=== PATIENT | female | born 1960 | race Caucasian/White ===

== ENCOUNTER 2017-03-05 16:37 | Emergency (ER) | payer BC, OTHER ==
[2017-03-05 17:17] VITALS: BP 120/74
--- NOTE | 2017-03-05 17:54 | UC ---
Respiratory Complaint HPI - HPI Summary HPI Summary: The patient comes in today for: 1. Runny nose, sore throat, runny eyes, and coughing, fever: Onset: Yesterday. Palliative/Provocative: Coughing makes the throat pain worse. Quality: sore Region: Posterior pharynx. Severity: 3/10 Time: Constant. Associated symptoms: Fever: 101 yesterday. : He was seen yesterday at [facility]: diagnosed as having influenza A Rhinitis: Green Sinus pressure: Present. Cough: Dry. Chest pain: None Dyspnea: None. * - History of Current Complaint Chief Complaint: UCGeneralIllness Stated Complaint: FLU COMPLAINT Time Seen by Provider: 03/05/17 17:45 Hx Obtained From: Patient Hx Last Menstrual Period: age 50 yo - Allergies/Home Medications Allergies/Adverse Reactions: Allergies Allergy/AdvReac Type Severity Reaction Status Date / Time Erythromycin Allergy Severe respiratory Verified 03/05/17 17:05 Sulfa Antibiotics Allergy Severe panic Verified 03/05/17 17:05 attacks Home Medications: Home Medications Acetaminophen TAB* [Tylenol TAB*] 2 tab Q8HR PRN 03/05/17 [History Confirmed 02/16] PMH/Surg Hx/FS Hx/Imm Hx Previously Healthy: Yes Endocrine History Of: Denies: Diabetes, Thyroid Disease, Hyperthyroidism, Hypothyroidism, Dyslipidemia Cardiovascular History Of: Denies: Cardiac Disorders, Hypertension, Pacemaker/ICD, Myocardial Infarction , Congestive Heart Failure, Atrial Fibrillation, Deep Vein Thrombosis, Bleeding Disorders Respiratory History Of: Denies: COPD, Asthma, Bronchitis, Pneumonia, Pulmonary Embolism GI/ History Of: Reports: Gastroesophageal Reflux - No medications taken for it. Denies: Ulcer, Gastrointestinal Bleed, Gall Bladder Disease, Kidney Stones, Diverticulitis, Renal Disease, Urosepsis Neurological History Of: Denies: TIA, CVA, Dementia, Seizures, Migraine Psychological History Of: Reports: Anxiety - She is not on any medications for this. Denies: Depression, Bipolar Disorder, Schizophrenia, Post Traumatic Stress Disorder Cancer History Of: Denies: Lung Cancer, Colorectal Cancer, Breast Cancer, Prostate Cancer, Cervical Cancer Other History Of: Negative For: HIV, Hepatitis B, Hepatitis C, Anticoagulant Therapy - Surgical History Surgical History: Yes Surgery Procedure, Year, and Place: right fallopian tube removed. appendectomy. left shoulder arthroscopy. tonsillectomy. Bilat ear tube 2016. Nasal/sinus surgery 2015 - Family History Known Family History: Positive: Cardiac Disease, Hypertension - Social History Occupation: Employed Full-time Alcohol Use: None Substance Use Type: None Smoking Status (MU): Current Every Day Smoker Type: Cigarettes Amount Used/How Often: 1 ppd Household Exposure Type: Cigarettes - Immunization History Most Recent Influenza Vaccination: NONE Most Recent Tetanus Shot: UTD Most Recent Pneumonia Vaccination: NONE Review of Systems Constitutional: Negative Skin: Negative Eyes: Negative ENT: Sore Throat, Nasal Discharge Respiratory: Cough Cardiovascular: Negative Gastrointestinal: Negative Genitourinary: Negative All Other Systems Reviewed And Are Negative: Yes Physical Exam Triage Information Reviewed: Yes Appearance: Well-Appearing, No Pain Distress, Well-Nourished Vital Signs: Initial Vital Signs Temp 97.9 F 03/05/17 17:07 Pulse 71 03/05/17 17:07 Resp 18 03/05/17 17:07 BP 120/74 03/05/17 17:07 Pulse Ox 97 03/05/17 17:07 Vital Signs Reviewed: Yes Eyes: Positive: Conjunctiva Clear. Negative: Discharge ENT: Positive: Hearing grossly normal. Negative: Pharyngeal erythema, Nasal congestion, Nasal drainage, TMs normal, TM dull, TM red Dental: Negative: Gross Decay/Caries @, Dental Fracture @ Neck: Positive: Supple, Nontender, No Lymphadenopathy. Negative: Nuchal Rigidity Respiratory: Positive: Lungs clear, No respiratory distress, No accessory muscle use. Negative: Accessory muscle use, Crackles, Wheezing Cardiovascular: Positive: RRR, No Murmur Abdomen Description: Positive: Nontender, No Organomegaly, Soft. Negative: Distended, Guarding Musculoskeletal: Positive: Strength Intact, ROM Intact, No Edema Neurological: Positive: Alert, Muscle Tone Normal Psychological: Positive: Age Appropriate Behavior, Consolable Skin: Negative: rashes, breakdown UC Diagnostic Evaluation - Laboratory O2 Sat by Pulse Oximetry: 97 Diagnostic Studies Comment: Strep test: (-). Influenza test: (-) Respiratory Course/Dx - Course Course Of Treatment: Patient told of negative flu and strep tests and her treatment options were discussed. She would like Tamiflu prophylaxis and treatment for sinusitis. - Differential Dx/Diagnosis Provider Diagnoses: Influenza exposure. Sinusitis Discharge - Discharge Plan Condition: Stable Disposition: HOME Patient Education Materials: Sinusitis (ED) Referrals: Damaso Marie DO [Doctor of Osteopathy] - 1 Week (Please see your primary care provider or us in a week to see how well you are doing. If you get worse, please be seen sooner. )
== END 2017-03-05 18:43 | disposition home or self-care (01) ==
LOC: UCCORT 16:37
DX: J32.9 Chronic sinusitis, unspecified (principal); Z88.1 Allergy status to other antibiotic agents; Z88.2 Allergy status to sulfonamides; F17.210 Nicotine dependence, cigarettes, uncomplicated
CPT/HCPCS: 87502; 87651; 99212; G0463

== ENCOUNTER 2017-09-23 12:55 | Emergency (ER) | payer BC ==
[2017-09-23 13:49] VITALS: BP 125/65
--- NOTE | 2017-09-23 14:09 | UC ---
Respiratory Complaint HPI - HPI Summary HPI Summary: Cough for about three weeks. Intermittent subjective fever. NO significant production. No hemoptysis. Left chest pain with cough. She is a smoker without any known lung disease. - History of Current Complaint Chief Complaint: UCGeneralIllness Stated Complaint: FEVER,FRAGOSO,COUGH Time Seen by Provider: 09/23/17 13:57 Hx Obtained From: Patient Hx Last Menstrual Period: age 50 yo Onset/Duration: Gradual Onset, Lasting Weeks Timing: Constant Severity Initially: Moderate Severity Currently: Moderate Character: Cough: Nonproductive Aggravating Factors: Deep Breaths, Recumbent Position Alleviating Factors: Nothing Associated Signs And Symptoms: Positive: Fever, URI, Nasal Congestion. Negative : Dyspnea, Chills, Pleuritic Chest Pain, Wheezing, Hemoptysis, Dizziness, Calf Pain, Calf Swelling, Edema - Allergies/Home Medications Allergies/Adverse Reactions: Allergies Allergy/AdvReac Type Severity Reaction Status Date / Time Erythromycin Allergy Severe respiratory Verified 09/23/17 13:40 Sulfa Antibiotics Allergy Severe panic Verified 09/23/17 13:40 attacks Home Medications: Home Medications Atorvastatin* [Lipitor 10 MG*] 1 tab DAILY 09/23/17 [History Confirmed 09/23/17] Omeprazole CAP* [Prilosec CAP* 20 MG] 1 tab DAILY 09/23/17 [History Confirmed ] PMH/Surg Hx/FS Hx/Imm Hx Previously Healthy: No - smoker. Other History Of: Negative For: HIV, Hepatitis B, Hepatitis C, Anticoagulant Therapy - Surgical History Surgical History: Yes Surgery Procedure, Year, and Place: right fallopian tube removed. appendectomy. left shoulder arthroscopy. tonsillectomy. Bilat ear tube 2016. Nasal/sinus surgery 2015 - Family History Known Family History: Positive: Cardiac Disease, Hypertension - Social History Alcohol Use: None Substance Use Type: None Smoking Status (MU): Current Every Day Smoker Type: Cigarettes Amount Used/How Often: 1 ppd Household Exposure Type: Cigarettes - Immunization History Most Recent Influenza Vaccination: NONE Most Recent Tetanus Shot: UTD Most Recent Pneumonia Vaccination: NONE Review of Systems ENT: Sinus Congestion Respiratory: Cough All Other Systems Reviewed And Are Negative: Yes Physical Exam Triage Information Reviewed: Yes Appearance: Well-Appearing, No Pain Distress, Well-Nourished Vital Signs: Initial Vital Signs Temp 97.3 F 09/23/17 13:41 Pulse 82 09/23/17 13:41 Resp 16 09/23/17 13:41 BP 125/65 09/23/17 13:41 Pulse Ox 96 09/23/17 13:41 Vital Signs Reviewed: Yes Eyes: Positive: Conjunctiva Clear ENT: Positive: Pharynx normal, TMs normal. Negative: Pharyngeal erythema, Nasal congestion, Nasal drainage, Tonsillar swelling, Tonsillar exudate, Trismus , Muffled voice, Hoarse voice, Dental tenderness, Sinus tenderness Neck: Positive: Supple, Nontender, No Lymphadenopathy Respiratory: Positive: Lungs clear, Normal breath sounds, No respiratory distress, No accessory muscle use. Negative: Respiratory distress, Decreased breath sounds, Accessory muscle use, Crackles, Rhonchi, Stridor, Wheezing Cardiovascular: Positive: RRR, No Murmur, Pulses Normal Abdomen Description: Positive: Nontender, No Organomegaly. Negative: Distended , Guarding Musculoskeletal: Positive: Strength Intact, ROM Intact, No Edema Neurological: Positive: Alert, Muscle Tone Normal. Negative: Fatigued Skin: Negative: rashes UC Diagnostic Evaluation - Laboratory O2 Sat by Pulse Oximetry: 96 Respiratory Course/Dx - Course Course Of Treatment: No clinical signs of pneumonia. We will try aggressive treatment with z pack and prednisone given duration of symptoms and smoking status. - Differential Dx/Diagnosis Provider Diagnoses: acute bronchitis. Discharge - Discharge Plan Condition: Good Disposition: HOME Prescriptions: Azithromyxin MARY (NF) [Z-Mary (Zithromax) 250 mg tabs #6] 2 tab PO .TODAY, THEN 1 DAILY #6 tab Benzonatate [TESSALON 200 MG CAP] 200 mg PO TID #30 cap predniSONE TAB* [Deltasone TAB*] 20 mg PO DAILY #15 tab Patient Education Materials: Upper Respiratory Infection (ED) Referrals: Noris Shine MD [Primary Care Provider] - If Needed
== END 2017-09-23 14:15 | disposition home or self-care (01) ==
LOC: UCCORT 12:55
DX: J20.9 Acute bronchitis, unspecified (principal); Z88.3 Allergy status to other anti-infective agents; Z88.2 Allergy status to sulfonamides; F17.210 Nicotine dependence, cigarettes, uncomplicated
CPT/HCPCS: 99212; G0463

== ENCOUNTER 2018-07-31 15:13 | Emergency (ER) | payer BC ==
[2018-07-31 16:15] VITALS: BP 131/94
--- NOTE | 2018-07-31 17:03 | UC ---
Respiratory Complaint HPI - HPI Summary HPI Summary: worsening cough, congestion and wheeze has not been able to smoke for the past 2 days---no fevers---usually smokes 1-1 1/2 packs per day - History of Current Complaint Chief Complaint: UCRespiratory Stated Complaint: COUGH Time Seen by Provider: 07/31/18 16:50 Hx Obtained From: Patient Hx Last Menstrual Period: age 50 yo ?: No Onset/Duration: Gradual Onset, Lasting Days, Worse Since - past 2-3 days Timing: Constant Pain Intensity: 3 Pain Scale Used: 0-10 Numeric Character: Cough: Productive Aggravating Factors: Nothing Alleviating Factors: Nothing Associated Signs And Symptoms: Positive: Pleuritic Chest Pain, URI - Allergies/Home Medications Allergies/Adverse Reactions: Allergies Allergy/AdvReac Type Severity Reaction Status Date / Time MS Erythromycin Allergy Severe respiratory Verified 07/31/18 16:15 [Erythromycin] MS Sulfa Antibiotics Allergy Severe panic Verified 07/31/18 16:15 [Sulfa Antibiotics] attacks PMH/Surg Hx/FS Hx/Imm Hx Previously Healthy: No Endocrine History: Dyslipidemia GI/ History: Gastroesophageal Reflux Other History Of: Negative For: HIV, Hepatitis B, Hepatitis C, Anticoagulant Therapy - Surgical History Surgical History: Yes Surgery Procedure, Year, and Place: right fallopian tube removed. appendectomy. left shoulder arthroscopy. tonsillectomy. Bilat ear tube 2016. Nasal/sinus surgery 2015 - Family History Known Family History: Positive: Cardiac Disease, Hypertension - Social History Occupation: Employed Full-time Lives: With Family Alcohol Use: None Substance Use Type: None Smoking Status (MU): Current Every Day Smoker Type: Cigarettes Amount Used/How Often: 1 ppd Household Exposure Type: Cigarettes Cessation Counseling: Counseled 3+Min - 10 Min - Immunization History Most Recent Influenza Vaccination: NONE Most Recent Tetanus Shot: UTD Most Recent Pneumonia Vaccination: NONE Review of Systems Constitutional: Negative Skin: Negative Eyes: Negative ENT: Negative Respiratory: Cough - wheeze Cardiovascular: Negative Gastrointestinal: Negative Genitourinary: Negative Motor: Negative Neurovascular: Negative Musculoskeletal: Negative Neurological: Negative Psychological: Negative Is Patient Immunocompromised?: No All Other Systems Reviewed And Are Negative: Yes Physical Exam Triage Information Reviewed: Yes Appearance: Well-Appearing, No Pain Distress, Well-Nourished Vital Signs: Initial Vital Signs Temp 98.6 F 07/31/18 16:10 Pulse 73 07/31/18 16:10 Resp 18 07/31/18 16:10 BP 131/94 07/31/18 16:10 Pulse Ox 94 07/31/18 16:10 Vital Signs Reviewed: Yes Eye Exam: Normal Eyes: Positive: Conjunctiva Clear ENT Exam: Normal ENT: Positive: Normal ENT inspection, Hearing grossly normal, Pharynx normal, TMs normal. Negative: Nasal congestion, Trismus, Muffled voice, Hoarse voice Dental Exam: Normal Neck exam: Normal Neck: Positive: Supple, Nontender, No Lymphadenopathy Respiratory Exam: Other Respiratory: Positive: Chest non-tender, No respiratory distress, No accessory muscle use, Wheezing Cardiovascular Exam: Normal Cardiovascular: Positive: RRR, Pulses Normal, Brisk Capillary Refill Musculoskeletal Exam: Normal Musculoskeletal: Positive: Strength Intact, ROM Intact, No Edema Neurological Exam: Normal Neurological: Positive: Alert, Muscle Tone Normal Psychological Exam: Normal Skin Exam: Normal UC Diagnostic Evaluation - Laboratory O2 Sat by Pulse Oximetry: 94 Re-Evaluation - Re-Evaluation First Eval Change: Improved - significant increase aeration and no wheeze after neb-feels much better Respiratory Course/Dx - Course Course Of Treatment: nicotine cesasation information , encouragement and supprt- -albuterol MDI, follow with pcp - Differential Dx/Diagnosis Provider Diagnoses: nicotine dependant, acute bronchospasm Discharge - Sign-Out/Discharge Documenting (check all that apply): Patient Departure All imaging exams completed and their final reports reviewed: No Studies - Discharge Plan Condition: Stable Disposition: HOME Prescriptions: Albuterol HFA INHALER* [Ventolin HFA Inhaler*] 2 puff INH Q4H PRN #1 mdi PRN Reason: cough/wheeze Nicotine PATCH 21 MG/24 HR* 21 mg TRANSDERM DAILY #28 patch Nicotine PATCH 21 MG/24 HR* 21 mg TRANSDERM DAILY 28 Days #28 patch Patient Education Materials: How to Stop Smoking (ED), Secondhand Smoke Exposure in Children (ED), Bronchospasm (ED) Referrals: Noris Shine MD [Primary Care Provider] - If Needed - Billing Disposition and Condition Condition: STABLE Disposition: Home
[2018-07-31] MEDS ORDERED: Albuterol/Ipratropium NEB.SOL* Albuterol 2.5 MG/Ipratropium 0.5 MG 3 ML INH ONE (17:10)
== END 2018-07-31 18:02 | disposition home or self-care (01) ==
LOC: UCCORT 15:13
DX: Z88.1 Allergy status to other antibiotic agents (principal); F17.210 Nicotine dependence, cigarettes, uncomplicated; J98.01 Acute bronchospasm
CPT/HCPCS: 99212; A9270-GY; G0463

== ENCOUNTER 2019-02-12 09:51 | Emergency (ER) | payer BC ==
[2019-02-12 10:18] VITALS: BP 139/79
--- NOTE | 2019-02-12 10:41 | UC ---
Skin Complaint HPI - HPI Summary HPI Summary: 59 old female who awakened this morning with insect bites to her arms and upper legs. She states she has checked for bedbugs however has not visualized any. She states she has also been outside over the past couple of days. - History of Current Complaint Chief Complaint: UCSkin Time Seen by Provider: 02/12/19 10:12 Stated Complaint: SKIN COMPLAINT Hx Obtained From: Patient Hx Last Menstrual Period: age 50 yo ?: No Onset/Duration: Gradual Onset Skin Exposure Onset/Duration: Hours Ago - Week and with the blood bites to her upper legs and forearms. Onset Severity: Moderate Current Severity: Moderate Pain Intensity: 3 Location: Other - Forearms and upper legs,there are a few bites on her lower legs. Character: Pruritus, Redness, Raised Aggravating Factor(s): Nothing Alleviating Factor(s): Antihistamines - She took Benadryl last evening with good relief. Associated Signs & Symptoms: Positive: Negative Related History: Insect Bite/Sting - Allergy/Home Medications Allergies/Adverse Reactions: Allergies Allergy/AdvReac Type Severity Reaction Status Date / Time erythromycin base Allergy See Comment Verified 02/12/19 10:16 Sulfa (Sulfonamide Allergy See Comment Verified 02/12/19 10:16 Antibiotics) Home Medications: Home Medications NK [No Home Medications Reported] 02/12/19 [History Confirmed 02/12/19] PMH/Surg Hx/FS Hx/Imm Hx Previously Healthy: Yes Other History Of: Negative For: HIV, Hepatitis B, Hepatitis C, Anticoagulant Therapy - Surgical History Surgical History: Yes Surgery Procedure, Year, and Place: right fallopian tube removed. appendectomy. left shoulder arthroscopy. tonsillectomy. Bilat ear tube 2016. Nasal/sinus surgery 2015 - Family History Known Family History: Positive: Cardiac Disease, Hypertension - Social History Alcohol Use: None Substance Use Type: None Smoking Status (MU): Heavy Every Day Tobacco Smoker Type: Cigarettes Amount Used/How Often: 1 ppd Household Exposure Type: Cigarettes - Immunization History Most Recent Influenza Vaccination: NONE Most Recent Tetanus Shot: UTD Most Recent Pneumonia Vaccination: NONE Review of Systems All Other Systems Reviewed And Are Negative: Yes Skin: Positive: Rash - Several bug bites to forearms, upper legs and a few on her lower legs. Is Patient Immunocompromised?: No Physical Exam Triage Information Reviewed: Yes Appearance: Well-Appearing, No Pain Distress, Well-Nourished Vital Signs: Initial Vital Signs Temp 97.8 F 02/12/19 10:14 Pulse 78 02/12/19 10:14 Resp 16 02/12/19 10:14 BP 139/79 02/12/19 10:14 Pulse Ox 98 02/12/19 10:14 Vital Signs Reviewed: Yes Skin: Positive: Other - Several red mildly raised itchy bug bites to her arms, lower legs and upper legs. There is skin infection. Course/Dx - Course Course Of Treatment: The insect bites appear to be more consistent with bedbugs however the patient states she has checked for bedbugs already. She can take Benadryl 25-50 mg every 6 hours for itching, she may take Claritin 10 mg daily, she may apply Benadryl cream to the areas. Other than throwing away her bedroom suit she could cover the mattresses with protective allergen covering and see if the bites resolve and if she has no further bug bites. Patient is agreeable that plan of action. - Diagnoses Provider Diagnosis: Insect bites Discharge - Sign-Out/Discharge Documenting (check all that apply): Patient Departure All imaging exams completed and their final reports reviewed: No Studies - Discharge Plan Condition: Fair Disposition: HOME Patient Education Materials: Insect Bite or Sting (ED) Referrals: Noris Shine MD [Primary Care Provider] - Additional Instructions: May take Benadryl 25 mg to 50 mg every 6 hours as needed for itching. May try Claritin one tablet daily. May apply Benadryl cream to the bug bites. Definite follow-up with the square cutter to assess for bedbugs. Follow Up with your primary care provider if no improvement in 3 or 4 days. - Billing Disposition and Condition Condition: FAIR Disposition: Home - Attestation Statements Provider Attestation: Per institutional requirements, I have reviewed the chart, however, I was not consulted specifically or made aware of this patient by the midlevel provider. I did not personally evaluate, interact with , or disposition this patient.
== END 2019-02-12 10:48 | disposition home or self-care (01) ==
LOC: UCCORT 09:51
DX: S40.862A Insect bite (nonvenomous) of left upper arm, initial encounter (principal); S40.861A Insect bite (nonvenomous) of right upper arm, initial encounter; S80.862A Insect bite (nonvenomous), left lower leg, initial encounter; S80.861A Insect bite (nonvenomous), right lower leg, initial encounter; F17.210 Nicotine dependence, cigarettes, uncomplicated; Z88.1 Allergy status to other antibiotic agents; Z88.2 Allergy status to sulfonamides; X58.XXXA Exposure to other specified factors, initial encounter
CPT/HCPCS: 99211; G0463